=== PATIENT | female | born 1985 | race Caucasian/White ===

== ENCOUNTER 2018-02-01 17:10 | Inpatient (IN) | payer OTHER, SELFPAY ==
[2018-02-01 14:47] VITALS: BMI 27.1
[2018-02-01] MEDS: Lactated Ringers 1,000 ML 50 ML IV ×2 (17:25→21:41)
[2018-02-01 17:42] LABS: Hemoglobin 13.4 g/dl (12.0-15.0); Mean Corp Hgb Conc 34.4 g/gl (32-36); Mean Corpuscular Hgb 30.3 pg (27.0-32.0); Mean Corpuscular Volume 88.2 fL (81-99); Mean Platelet Vol. 11.7 fl (6.2-12.0); Platelet Count 179 K/mm3 (150-450); RBC Distribution Width CV 14.5 % (11.6-14.6); RBC Distribution Width SD 46.2 fl (35.1-43.9); Red Blood Count 4.42 M/mm3 (4.2-5.4)
[2018-02-01 18:00] LABS: Scan Indicated on CBC? Y/N NO
--- NOTE | 2018-02-01 18:18 | PCM.HP.OB ---
- Problem List (1) History of anxiety Status: Acute (2) Anemia during Status: Acute (3) Active labor at term Status: Acute History Date of Admission: 02/01/18 Final CLYDE: 02/07/18 Final CLYDE Source: LMP Gestational age: 39 Weeks and 1 Days History of this : This is a 32 year-old, G [1], P [0], at 39 weeks gestational age by LMP Presented to L&D around 1pm today. Contractions began around 0600 this am and have increased in frequency and intensity. Around 1pm contractions began every 5 minutes. Upon arrival 4cm/90%/-2. at bedside. Allergies No Known Allergies Allergy (Verified 02/01/18 14:48) Home Medications: Home Medications Ferrous Sulfate [Iron] 325 mg PO DAILY 02/01/18 Vits [Prenatabs FA] 1 tablet PO DAILY 02/01/18 Smoking Status: Never smoker Alcohol: None Number of Fetus(es): 1 Heart Tracin, moderate variability, accels, no decels, Category 1 TOCO Analysis: TOCO every 2-3 minutes, moderate to palpation, lasting 60 seconds. History Past Pregnancies: Past Pregnancies Delivery Date Name GA/Weeks Outcome Route Weight Infant Gender Labor Length Anesthesia Delivery Location Provider FOB Labs: GBS negative O positive RPR negative Rubella immune HBsAG negative HIV negative Placenta anterior fundal Review of Systems Constitutional: Denies: Chills, Fever, Weight Change HEENT: Denies: Head Aches, Sinus Congestion, Sinus Drainage Cardiovascular: Denies: Chest Pain, Palpitations Respiratory: Denies: Cough, Shortness of breath at rest, Sputum production Gastrointestinal: Reports: Abdominal Pain. Denies: Nausea, Vomiting Genitourinary: Denies: Dysuria Musculoskeletal: Denies: Joint Pain, Joint Tenderness Skin: Denies: Rash, Wounds Neurological: Denies: Numbness, Tingling, Focal weakness Psychiatric: Denies: Anxiety, Depression, Homicidal Ideations, Suicidal Ideations Physical Exam General: Alert, Oriented x3, No apparent distress HEENT: Atraumatic, Normocephalic Cardiovascular: Regular rate, Regular Rhythm, Normal S2, No murmurs Lungs: Clear to auscultation, No rhonchi, No wheeze Abdomen: Gravid Extremities:: No edema Neurological: Deep Tendon Reflexes 2+/4 and Symmetrical. Negative for: Clonus WATCH PARTS INSPECTOR: Normal external genitalia Estimated gestational size: Appropriate for gestational size Presentation: Cephalic Cervix Dilation (cm): 5 Station: -2 Effacement (%): 90 Assessment/Plan All Active Problems History of anxiety (Acute) Anemia during (Acute) Active labor at term (Acute) This is a 32 year-old, G [1], P [0], at 39 weeks gestational age. A:Active Labor Category 1 FHT P: 1) Admit to L&D. IV saline lock. Send labs 2) INtermittent monitoring 3) Planning natural childbirth, positional changes, and shower. 4) notified of patient status Francheska Vazquez APRN, CNM
[2018-02-01] MEDS: 0.9% Saline Lock 10 ML Syringe IV (18:56)
[2018-02-01] MEDS: Nalbuphine 10 MG/ML Ampul IV (18:56)
[2018-02-01] MEDS: proMETHazine 25 MG/ML Syringe IV (19:08)
--- NOTE | 2018-02-01 21:59 | PCM.PN.OB ---
Patient Problems: Active and Suspected Problems History of anxiety (Acute) Anemia during (Acute) Active labor at term (Acute) Subjective: Resting in bed, breathing through contractions. at bedside. Objective: FHT 135, minimal variability, no accels, no decels, Category 2 TOCO: every 2 minutes, strong, lasting 60 seconds. Cervix 8-9cm/90%/0 AROM for clear fluid, patient tolerated well. - Physical Exam Weight: 172 lb 13.478 oz Body Mass Index (BMI) 27.1 Laboratory Tests Past 24 Hrs 02/01/18 02/01/18 17:25 17:25 WBC 12.0 H RBC 4.42 Hgb 13.4 Hct 39.0 MCV 88.2 MCH 30.3 MCHC 34.4 RDW 14.5 RDW Differential 46.2 H Plt Count 179 MPV 11.7 Blood Type O POSITIVE Antibody Screen NEGATIVE Medical Necessity - Tobacco Use Smoking Status: Never smoker Assessment/Plan All Active Problems History of anxiety (Acute) Anemia during (Acute) Active labor at term (Acute) A:Active Labor, progressing Category 2 FHT P: 1) Continue positional changes and expectant management.
[2018-02-02] MEDS: Oxytocin 30 units/NS 500 ml 30 UNITS/500 ML IV.SOLN 334 UNITS IV (00:30)
--- NOTE | 2018-02-02 00:58 | PCM.OB.VAG ---
- Problem List (1) History of anxiety Status: Acute (2) Anemia during Status: Acute (3) Active labor at term Status: Acute (4) Vaginal delivery Status: Acute (5) Second degree perineal laceration Status: Acute Vaginal Delivery Maternal Presentation: Active Labor Amniotic Membrane Rupture Type: Artificial Amniotic Fluid Description: Clear Final CLYDE: 02/07/18 Gestational age: 39 Weeks and 2 Days Date of Procedure: 02/02/18 Pre-Operative Diagnosis: Active Labor Post-Operative Diagnosis: Surgery/ Procedure Performed: Spontaneous Vaginal Delivery Type of Anesthesia: None Description of Procedure: Progressed to complete with urge to push. Pushing efforts with progression of descent. station +3 and FHR down to 54, prolonged decel. Regional Branch Manager called to room for delivery. Positional changes left side, right side, and hands and knees. on L&D unit and called to room for vacuum extraction. FHR recovered and resumed pushing efforts. of viable male over 1st degree perineal laceration. APGARS 8,9 weight pending. Infant head delivered with CAN x1 loose, delivered through, shoulders forthcoming. Placed on maternal abdomen, poor tone, stimulation, mouth and nares suctioned, cord clamped and cut. with cry, good color, tone, and heart rate, left on maternal abdomen skin to skin. Pitocin IV started for active 3rd stage management. Placenta delivered via khadar, intact, 3 vessel cord. Perineum inspected and revealed 2nd degree perineal laceration, repaired with 1% lidocaine and 3.0vicryl. Well approximated and hemostasis achieved. Fundus firm, EBL 300ml. Planning to breastfeed, mom and baby stable, family bonding well. notified of delivery. Presentation: Vertex Placental Delivery Description: Spontaneous Placenta Disposition: [facility] Cord Vessel Description: 3 Vessels Cord Entanglement: Around neck x 1, loose Estimated Blood Loss: 300 ml A gender: Male (1 minute): 8 (5 minute): 9 Episiotomy Description: None Laceration: Perineal Extension/lac, 1st degree Medications given after delivery: IV Pitocin Complications: None
[2018-02-02 02:29] VITALS: BP 104/65; PULSE 83; RESP 16; TEMP 36.6
[2018-02-02 08:50] VITALS: BP 119/67; PULSE 76; RESP 18; TEMP 37
[2018-02-02 11:18] VITALS: BP 129/73; PULSE 86; RESP 18; TEMP 36.7
[2018-02-02 16:00] VITALS: BP 115/60; PULSE 85; RESP 18; TEMP 36.8
--- NOTE | 2018-02-02 16:55 | PCM.PN.OB ---
Patient Problems: Active and Suspected Problems History of anxiety (Acute) Anemia during (Acute) Active labor at term (Acute) Vaginal delivery (Acute) Second degree perineal laceration (Acute) Subjective: Patient sitting in bed with at this time. Denies any issues are this time. Reports that baby is latching better each time and that she does not have any discomfort. Reports no issues with ambulation or urination. Reports that vaginal bleeding is decreasing. Objective: Nipples slightly erythemic, no cracks or blisters noted Abdomen NT x 4 quadrants, FF midline 3FB below umbilicus +2/4 reflexes in LE, no edema noted, negative calf tenderness to palpation Scant rubra lochia, perineum well-approximated - Physical Exam General: Alert, Oriented x3, Cooperative HEENT: Normocephalic Neck: Negative Carotid Bruits Lungs: Normal air movement Cardiovascular: Regular rate, Regular Rhythm Abdomen: Soft, Non Tender Extremities: No edema, Capillary Refill Less than 3 Seconds Skin: No rashes Neurological: Cranial nerves II-XII grossly intact, Deep Tendon Reflexes 2+/4 and Symmetrical Psych/Mental Status: Normal Affect, Appropriate, Alert and oriented to time, place, person, mood and affect Vital Signs Temp Pulse Resp BP 98.0 F 86 18 129/73 H 02/02/18 11:18 02/02/18 11:18 02/02/18 11:18 02/02/18 11:18 Oxygen Delivery Method Room Air Weight: 172 lb 13.478 oz Body Mass Index (BMI) 27.1 Intake and Output for Last 24 Hours 01/31/18 02/01/18 02/02/18 23:59 23:59 23:59 Intake Total 1500 / 1500 Output Total 500 / 500 800 / 800 Balance 1000 / 1000 -800 / -800 Laboratory Tests Past 24 Hrs 02/01/18 02/01/18 17:25 17:25 WBC 12.0 H RBC 4.42 Hgb 13.4 Hct 39.0 MCV 88.2 MCH 30.3 MCHC 34.4 RDW 14.5 RDW Differential 46.2 H Plt Count 179 MPV 11.7 Blood Type O POSITIVE Antibody Screen NEGATIVE Medical Necessity - Tobacco Use Smoking Status: Never smoker Assessment/Plan All Active Problems History of anxiety (Acute) Anemia during (Acute) Active labor at term (Acute) Vaginal delivery (Acute) Second degree perineal laceration (Acute) 32 y/p now, PPD #1, Normal Course 1) Continue PP management 2) Continue 3) Anticipate discharge to home tomorrow Jazmine MARCOS
--- NOTE | 2018-02-02 17:37 | DCINST_ITS ---
Discharge Diet: No Restrictions Discharge Activity: Return to Normal Activity, May not drive while taking narcotic pain medications., May Shower May resume sexual activity in: 4-6 weeks Additional Activity Instructions:: Nothing in the vagina for 4-6 weeks. You may return to work/school in 6 weeks. Call your doctor if your incision/area has: Continuous Slow Oozing, Sudden Increased Bleeding, Increased Pain/ Swelling, Increased Redness, Foul Smelling Discharge Call your doctor if you observe: Fever of 101 or Higher, Inability to urinate, Inability to have a bowel movement, Using more than one pad per hour Additional Instructions: If you experience any of the following, contact your healthcare provider. * Bleeding that soaks a pad every hour for 2 hours * Fever 100.4 or higher * Unrelieved incision or abdominal pain * Swelling, redness, discharge or bleeding from your incision or episiotomy site * Your incision begins to separate * Problems urinating (including inability to urinate or burning while urinating). * Visual changes * Severe headache * Flu-like symptoms * Pain or redness in one of both of your breasts * Pain, warmth, tenderness or swelling in your legs, especially the calf area * Frequent nausea and vomiting * Symptoms of depression or anxiety If you experience any of the following, call 911 or go to the nearest Emergency Room. * Chest pain * Problems breathing * Seizure activity * Partial or complete paralysis of a body part, slurred speech, weakness or drooping of the face, or a sudden inability to walk or hold your balance Allergies/Adverse Reactions: Allergies No Known Allergies Allergy (Verified 02/01/18 14:48) Medications to take at Discharge Ferrous Sulfate [Iron] 325 mg PO DAILY 02/01/18 Vits [Prenatabs FA] 1 tablet PO DAILY 02/01/18 Please Follow Up With: Francheska Vazquez CNM When: Call to make an appointment with your provider in 2 weeks and 6 weeks. If you had elevated Blood Pressure or 4th degree laceration you will need to be seen in 2 weeks. Primary Care Physician: Darryl Chairez MD [Primary Care Provider] - Test Results: Test results from this visit will be discussed in further detail at your follow- up appointment, if applicable. Proposed Discharge Date: 02/03/18
[2018-02-02 20:42] VITALS: BP 114/62; PULSE 87; RESP 16; TEMP 36.6; O2SAT 96
[2018-02-03 01:25] VITALS: BP 115/59; PULSE 82; RESP 16; TEMP 36.3; O2SAT 95
[2018-02-03 07:59] VITALS: BP 109/64; PULSE 68; RESP 16; TEMP 36.6
--- NOTE | 2018-02-03 09:04 | PCM.PN.OB ---
Patient Problems: Active and Suspected Problems History of anxiety (Acute) Anemia during (Acute) Active labor at term (Acute) Vaginal delivery (Acute) Second degree perineal laceration (Acute) Subjective: Doing well per patient and nursing staff. Ambulating and taking PO without difficulty. Voiding and passing flatus. without difficulty. Denies any headache, visual changes, chest pain, SOB,increased vaginal bleeding, increased pain or leg pain. Planning D/C home today. - Physical Exam General: Alert, Oriented x3, Cooperative HEENT: Atraumatic, Normocephalic Cardiovascular: Regular rate, Regular Rhythm, No murmurs Abdomen: Non Tender, - - Fundus firm 2 below U Extremities: No edema Psych/Mental Status: Normal Affect, Appropriate Vital Signs Temp Pulse Resp BP Pulse Ox 97.8 F 68 16 109/64 95 02/03/18 07:59 02/03/18 07:59 02/03/18 07:59 02/03/18 07:59 02/03/18 01:25 Oxygen Delivery Method Room Air Weight: 172 lb 13.478 oz Body Mass Index (BMI) 27.1 Intake and Output for Last 24 Hours 02/01/18 02/02/18 02/03/18 23:59 23:59 23:59 Intake Total 1500 / 1500 Output Total 500 / 500 800 / 800 Balance 1000 / 1000 -800 / -800 Medical Necessity - Tobacco Use Smoking Status: Never smoker Assessment/Plan All Active Problems History of anxiety (Acute) Anemia during (Acute) Active labor at term (Acute) Vaginal delivery (Acute) Second degree perineal laceration (Acute) A:PPD #2 P: 1) D/C instructions given. D/C home today 2) Follow up in 6 weeks for visit. 3) Declines LARC
[2018-02-03 14:51] VITALS: BP 111/65; PULSE 71; RESP 16; TEMP 36.6
== END 2018-02-03 16:30 | disposition home or self-care (01) | DRG 807 ==
LOC: WPOUT 17:11
PROVIDERS: Advanced Practice Midwife; Admitting Provider Obstetrics & Gynecology; Family Provider Family Medicine; PCP Family Medicine; Referring Provider Obstetrics & Gynecology; Visit Provider Obstetrics & Gynecology
DX: O69.81X0 Labor and delivery complicated by cord around neck, without compression, not applicable or unspecified (principal); O76 Abnormality in fetal heart rate and rhythm complicating labor and delivery; O70.1 Second degree perineal laceration during delivery; Z3A.39 39 weeks gestation of pregnancy; Z37.0 Single live birth
CPT/HCPCS: 59025; 59050; 85027; 86850; 86900; 99218; J7120; A4216; G0378

== ENCOUNTER 2018-02-07 13:30 | Outpatient (CLI) | payer OTHER, SELFPAY | END 2018-02-07 14:20 | disposition home or self-care (01) | LOC: WPOUT 14:01 → WP 14:04 | PROVIDERS: Family Provider Family Medicine; PCP Family Medicine; Referring Provider Obstetrics & Gynecology; Visit Provider Obstetrics & Gynecology | DX: Z39.1 Encounter for care and examination of lactating mother (principal) | CPT/HCPCS: 96152 ==

== ENCOUNTER 2020-02-02 02:30 | Inpatient (IN) | payer OTHER, SELFPAY ==
[2020-02-02] VITALS (18 sets, daily range): BP systolic 109–138; BP diastolic 58–82; PULSE 71–91; RESP 16; TEMP 36.1–36.8; O2SAT 96–97; BMI 29.4
[2020-02-02] MEDS: Lactated Ringers 1,000 ML 200 ML IV (03:15)
[2020-02-02 03:35] LABS: Absolute Lymphocyte Count 2.25 X10^3/uL (0.83-4.51); Absolute Neutrophil Count 6.9 X10^3/uL (2.0-7.7); Basophil# 0.06 X10^3/uL; Basophil% 0.6 % (0-1); Eosinophil# 0.08 X10^3/uL; Eosinophils% 0.8 % (0-5); Hemoglobin 11.4 g/dL (12.0-15.0); Lymphocyte # 2.25 X10^3/ul (4.0); Lymphocyte % 21.4 % (19-41); Mean Corp Hgb Conc 32.6 g/dL (32-36); Mean Corpuscular Hgb 28.5 pg (27.0-32.0); Mean Corpuscular Volume 87.5 fL (81-99); Monocyte# 1.03 X10^3/uL; Monocyte% 9.8 % (0-10); NRBC Flagged by Analyzer 0 % (0-5); Neutrophil # 6.91 X10^3/uL (2.7-7.7); Neutrophil % 65.8 % (47-70); Platelet Count 195 K/mm3 (150-450); RBC Distribution Width CV 14.3 % (11.6-14.6); RBC Distribution Width SD 45.8 fl (35.1-43.9); White Blood Count 10.5 K/mm3 (4.4-11.0)
--- NOTE | 2020-02-02 04:54 | HP.PCM_ITS ---
History Date of Admission: 02/01/18 Final CLYDE: 02/08/20 Final CLYDE Source: LMP Gestational age: 39 Weeks and 1 Days History of this : This is a 34 year-old, G [2], P [1001], at 39 weeks gestational age. Presented to unit with contractions that started at midnight and increased in frequency and intensity. Upon arrival found to be 5cm. No leakage of fluid or vaginal bleeding. uncomplicated to date. Allergies No Known Allergies Allergy (Verified 02/02/20 03:54) Home Medications: Home Medications Vits [Prenatabs FA ] 1 tablet PO DAILY 02/01/18 Ferrous Sulfate [Iron] 1 tab PO QODAY 02/02/20 Sertraline HCl [Zoloft] 1 tab PO DAILY 02/02/20 Smoking Status: Never smoker Alcohol: None Number of Fetus(es): 1 NST - FHR Rate Baby A Baseline: 145 Variability:: Moderate Accelerations:: 15 x 15 Decelerations:: None FHR Category:: Category I Uterine Activity:: q5min, strong History Past Pregnancies: Past Pregnancies Delivery Date Name GA/ Weeks Outcome Route Wt Infant Sex Labor Length Anesthesia Delivery Location Provider FOB Labs: Mom's Labs & Results 02/02/20 02/02/20 03:15 03:15 WBC 10.5 RBC 4.00 L Hgb 11.4 L Hct 35.0 L MCV 87.5 MCH 28.5 MCHC 32.6 RDW Std Deviation 45.8 H RDW Coeff of Pedro 14.3 Plt Count 195 MPV 11.0 Immature Gran % (Auto) 1.600 H Neut % (Auto) 65.8 Lymph % (Auto) 21.4 [place] % (Auto) 9.8 Eos % (Auto) 0.8 Baso % (Auto) 0.6 Absolute Neuts (auto) 6.9 Absolute Lymphs (auto) 2.25 Nucleated RBC % 0 Blood Type O POSITIVE Antibody Screen NEGATIVE Course Did the patient receive Yes care? Labs Blood Type: O RH: POSITIVE RPR/VDRL/Syphilis Nonreactive Rubella status Immune HbSAg Negative Date Done: 07/06/19 Chlamydia Negative Gonorrhea Negative HIV/AIDS Non-Reactive Group B Strep: Negative Current Obstetrical History Gestational Diabetes No Incompetent Cervix No Infertility No IUGR No Macrosomia No Hypertension/Pre-eclampsia No Placenta Previa/Abruption No PTL/PROM No Uterine anomaly No Oligohydramnios No Polyhydramnios No Multiple gestation No Past Medical History Asthma No Diabetes No Hypertension No Heart disease No Mitral valve prolapse No Neurologic/Seizure disorder/ No Migraines Kidney disease No Liver disease No Varicosities No Clotting disorders/Hx of DVT No Thyroid Dysfunction No Other medical diseases No Psychiatric disorders No Major trauma No Abnormal PAP smear No Sleep apnea No Mammogram in the last 2 years No Social History Marital Status: Alleged father Festus Palencia Hx Smoking No Smoking Status Never smoker Expected Delivery Method: Spontaneous Vaginal Review of Systems Constitutional: Denies: Chills, Fever, Weight Change HEENT: Denies: Head Aches, Sinus Congestion, Sinus Drainage Cardiovascular: Denies: Chest Pain, Palpitations Respiratory: Denies: Cough, Shortness of breath at rest, Sputum production Gastrointestinal: Denies: Abdominal Pain, Nausea, Vomiting Genitourinary: Denies: Dysuria Musculoskeletal: Denies: Joint Pain, Joint Tenderness Skin: Denies: Rash, Wounds Neurological: Denies: Numbness, Tingling, Focal weakness Psychiatric: Denies: Anxiety, Depression, Homicidal Ideations, Suicidal Ideations Hematologic/ Lymphatic: Denies: Easy Bruising, Easy Bleeding Physical Exam Vitals: Vital Signs Pulse BP Pulse Ox 86 124/62 H 97 02/02/20 04:52 02/02/20 04:52 02/02/20 02:28 General: Alert, Oriented x3, Cooperative HEENT: Atraumatic, Normocephalic Extremities:: No edema SANITIZER: Normal external genitalia Estimated gestational size: Appropriate for gestational size Presentation: Cephalic Cervix Dilation (cm): 9 - AROM for moderate amount of meconium stained fluid. Station: -1 Effacement (%): 90 Assessment/Plan All Active Problems History of anxiety (Acute) Anemia during (Acute) Active labor at term (Acute) Vaginal delivery (Acute) Second degree perineal laceration (Acute) This is a 34 year-old, G [2], P [1001], at 39 weeks gestational age. A: Active Labor at term Category 1 FHT Meconium stained fluid P: 1) Admit to labor and delivery 2) Routine labs, GBS negative. COVID antigen test to be performed 3) Planning unmedicated 4) Meconium stained fluid, continuous EFM 5) notified of patient admission and status. Collaborative physician.
--- NOTE | 2020-02-02 05:05 | OP.PCM_ITS ---
Vaginal Delivery Maternal Presentation: Active Labor Amniotic Membrane Rupture Type: Artificial Amniotic Fluid Description: Lightly stained meconium Final CLYDE: 02/08/20 Gestational age: 39 Weeks and 1 Days Surgery/ Procedure Performed: Spontaneous Vaginal Delivery Type of Anesthesia: Local with 1% lidocaine Description of Procedure: Progressed to complete with strong urge to push. Rodent Exterminator and respiratory called to bedside due to meconium stained fluid. of viable female infant over 2nd degree perineal laceration. APGARS 7,8,9. Infant head delivered with b eric forthcoming. Good tone and color but poor respiratory effort. Cord clamped and cut and handed to nursery staff. Unable to start IV pitocin due to infiltrated IV. IM pitocin given for active 3rd stage management. Placenta delivered with maternal effort, 3 vessel cord via khadar. Perineum inspected and revealed 2nd degree perineal laceration. Repair with 1% lidocaine and 3.0 vicryl rapide. Well approximated and hemostasis achieved. Fundus firm, 300ml EBL. Mom and baby stable. Planning to breastfeed. Family bonding well. notified of delivery. Presentation: Vertex Placental Delivery Description: Spontaneous Placenta Disposition: [facility] Cord Vessel Description: 3 Vessels Cord Entanglement: None Estimated Blood Loss: 300 ml Infant A gender: Female (1 minute): 7 - 10 minute =9 (5 minute): 8 Episiotomy Description: None Laceration: Perineal Extension/lac, 2nd degree Medications given after delivery: - - IM Pitocin. IV infiltrated Complications: None
[2020-02-02] MEDS: Oxytocin 10 UNITS/ML Vial IM (05:29)
--- NOTE | 2020-02-02 13:50 | CASEMGMT ---
Social Work Brief Assessment Labor and Delivery Unit Refer documentation below for further details. Date of Referral/Notification: 02/02/2020 Time of Referral: 06:14 Reason for Referral: MOB with history of Post Depression Date of Intervention: 02/02/2020 Time of Intervention: 13:50 Informant: Medical record and mother of baby (MOB) Assessment: Met with MOB and FOB in room. Introduced role and reason for referral. MOB openly discussed mental health history. MOB reports unsure if she really had post depression. MOB reports 2 weeks after son, Caleb (age 2) was born her father . MOB states son was also a very colicky baby. MOB denies any current issues with depression or anxiety. MOB reports is breast feeding baby girl, Wendi and it is going well. MOB and FOB deny any issues or needs. MOB reports good support from family and friends. Collaboration with nursing who reports no concerns. Plan: Home with resources provided No further needs requested or indicated. Debbie Jiang, SOLE TRIMMER, STATION OPERATOR
[2020-02-03 00:50] VITALS: BP 106/67; PULSE 69; RESP 16; TEMP 36.3
--- NOTE | 2020-02-03 03:10 | NURSING ---
this RN gave report to aorr RN. that RN to assume care of pt at this time.
--- NOTE | 2020-02-03 03:16 | NURSING ---
This RN assuming care of patient at this time. Received report from Micheline CORDON.
[2020-02-03 04:21] VITALS: BP 100/66; PULSE 73; RESP 16; TEMP 36.4
[2020-02-03 04:33] LABS: Hematocrit 33.5 % (37-47); Mean Corp Hgb Conc 32.8 g/dL (32-36); Mean Corpuscular Hgb 28.9 pg (27.0-32.0); Mean Corpuscular Volume 88.2 fL (81-99); Mean Platelet Vol. 10.5 fl (6.2-12.0); Platelet Count 181 K/mm3 (150-450); RBC Distribution Width CV 14.6 % (11.6-14.6); RBC Distribution Width SD 46.7 fl (35.1-43.9); White Blood Count 10.5 K/mm3 (4.4-11.0)
[2020-02-03 07:25] VITALS: BP 116/71; PULSE 61; RESP 16; TEMP 36.6; O2SAT 99
--- NOTE | 2020-02-03 09:36 | PCM.PN.OB ---
Subjective: Doing well per patient and nursing staff. Ambulating and taking PO without difficulty. Voiding and passing flatus. Pain controlled. without difficulty. Planning D/C home today. - Physical Exam Vitals/I&O's: Vital Signs Temp Pulse Resp BP Pulse Ox 97.8 F 61 16 116/71 99 02/03/20 07:25 02/03/20 07:25 02/03/20 07:25 02/03/20 07:25 02/03/20 07:25 Oxygen Delivery Method Room Air Weight: 188 lb Body Mass Index (BMI) 29.4 Intake and Output for Last 24 Hours 02/01/20 02/02/20 02/03/20 23:59 23:59 23:59 Intake Total 233.33 / 233.33 Output Total 150 / 150 Balance 83.33 / 83.33 General: Alert, Oriented x3, Cooperative HEENT: Atraumatic, Normocephalic Neck: Trachea Midline Lungs: Clear to auscultation, Normal air movement, No rhonchi, No wheeze Cardiovascular: Regular rate, Regular Rhythm, No murmurs Abdomen: Bowel Sounds Present, Soft - fundus firm 2 below U Extremities: No edema Psych/Mental Status: Normal Affect, Appropriate Microbiology Past 72 Hours 02/02/20 05:20 Mucosa - Nose - Final Laboratory Results 02/03/20 04:25: WBC 10.5, RBC 3.80 L, Hgb 11.0 L, Hct 33.5 L, MCV 88.2, MCH 28.9, MCHC 32.8, RDW Std Deviation 46.7 H, RDW Coeff of Pedro 14.6, Plt Count 181, MPV 10.5 Current Medications Acetaminophen (Acetaminophen 500 Mg Tablet) 1,000 mg PO Q8H PRN PRN PRN Reason: Pain Score 1-3 Bisacodyl (Bisacodyl 10 Mg Suppository) 10 mg RECTAL UD PRN PRN Reason: If no BM Dibucaine (Dibucaine 30 Gm Tube) 1 applic TOPICAL TID PRN PRN; Protocol PRN Reason: Discomfort Hydrocortisone (Hydrocortisone 2.5% Crm) 1 applic TOPICAL TID PRN PRN; Protocol PRN Reason: Discomfort Ibuprofen (Ibuprofen 600 Mg Tablet) 600 mg PO Q6H PRN PRN PRN Reason: Pain Score 1-3 Methylergonovine Maleate (Methylergonovine 0.2 Mg/Ml Ampul) 0.2 mg IM X1 PRN PRN Reason: Excess bleeding/uterine atony Ondansetron HCl (Ondansetron 4 Mg/2 Ml Vial) 4 mg IV Q4H PRN PRN PRN Reason: Nausea Oxytocin (Oxytocin 10 Units/Ml Vial) 10 units IM X1 JAYDON Last Admin: 02/02/20 05:29 Dose: 10 units Documented by: Senna/Docusate Sodium (Senna/Docusate Sodium 1 Tablet) 1 - 2 tablet PO DAILY PRN PRN PRN Reason: Constipation Simethicone (Simethicone 80 Mg Tablet) 80 mg PO PCHS PRN PRN Reason: Indigestion/Stomach pain Sodium Chloride (0.9% Saline Lock 10 Ml Syringe) 5 - 15 ml IV UD PRN PRN Reason: SALINE FLUSH Medical Necessity - Tobacco Use Smoking Status: Never smoker Assessment/Plan All Active Problems History of anxiety (Acute) Anemia during (Acute) Active labor at term (Acute) Vaginal delivery (Acute) Second degree perineal laceration (Acute) A:PPD #1 P: 1) Routine care and education 2) D/C home 3) follow up in 2 weeks and 6 weeks
--- NOTE | 2020-02-03 09:39 | DCINST_ITS ---
Discharge Diet: No Restrictions Discharge Activity: Return to Normal Activity, May not drive while taking narcotic pain medications., May Shower, May Take a Tub Bath May resume sexual activity in: 4-6 weeks Weight Bearing Status: Full weight bearing Additional Activity Instructions:: Nothing in the vagina for 4-6 weeks. You may return to work/school in 6 weeks. Call your doctor if your incision/area has: Continuous Slow Oozing, Sudden Increased Bleeding, Increased Pain/ Swelling, Increased Redness, Foul Smelling Discharge Call your doctor if you observe: Fever of 101 or Higher, Inability to urinate, Inability to have a bowel movement, Using more than one pad per hour, Shortness of breath, Dizziness, Fainting spells, Chest pain, Increased palpitations (irregular heartbeat), Calf discomfort, Uncontrolled pain Additional Instructions: If you experience any of the following, contact your healthcare provider. * Bleeding that soaks a pad every hour for 2 hours * Fever 100.4 or higher * Unrelieved incision or abdominal pain * Swelling, redness, discharge or bleeding from your incision or episiotomy site * Your incision begins to separate * Problems urinating (including inability to urinate or burning while urinating). * Visual changes * Severe headache * Flu-like symptoms * Pain or redness in one of both of your breasts * Pain, warmth, tenderness or swelling in your legs, especially the calf area * Frequent nausea and vomiting * Symptoms of depression or anxiety If you experience any of the following, call 911 or go to the nearest Emergency Room. * Chest pain * Problems breathing * Seizure activity * Partial or complete paralysis of a body part, slurred speech, weakness or drooping of the face, or a sudden inability to walk or hold your balance Allergies/Adverse Reactions: Allergies No Known Allergies Allergy (Verified 02/02/20 03:54) Medications to take at Discharge Vits [Prenatabs FA ] 1 tablet PO DAILY 02/01/18 Sertraline HCl [Zoloft] 1 tab PO DAILY 02/02/20 Ibuprofen [Motrin] 600 mg PO Q6H PRN PRN tablet 02/03/20 Please Follow Up With: Francheska Vazquez CNM When: Call to make an appointment with your doctor in 2 weeks and 6 weeks. If you had elevated Blood Pressure or 4th degree laceration you will need to be seen in 2 weeks. Primary Care Physician: Darryl Chairez MD [Primary Care Provider] - Test Results: Test results from this visit will be discussed in further detail at your follow- up appointment, if applicable.
== END 2020-02-03 10:50 | disposition home or self-care (01) | DRG 807 ==
LOC: WPOUT 02:56 → WP 02:56
PROVIDERS: Admitting Provider Advanced Practice Midwife; PCP Family Medicine; Referring Provider Advanced Practice Midwife; Visit Provider Advanced Practice Midwife
DX: O77.0 Labor and delivery complicated by meconium in amniotic fluid (principal); Z37.0 Single live birth; O70.1 Second degree perineal laceration during delivery; O99.02 Anemia complicating childbirth; D64.9 Anemia, unspecified; O99.344 Other mental disorders complicating childbirth; F41.9 Anxiety disorder, unspecified; Z3A.39 39 weeks gestation of pregnancy
CPT/HCPCS: 59025; 59050; 85025; 85027; 86850; 86900; 86901; 87426; 99218; J7120; G0378

== ENCOUNTER 2021-11-18 12:53 | Emergency (ER) | payer OTHER, SELFPAY ==
--- NOTE | 2021-11-18 12:56 | SUR.HOLD ---
PT THRASHING AROUND IN TRIAGE BECAUSE I DONT LIKE DOCTORS, I NEED TO LAY DOWN, JUST LET ME LAY ON THE FLOOR, I DONT LIKE DOCTORS, TAKE THIS OFF ME, LET ME LAY ACROSS THESE CHAIRS.
[2021-11-18 12:57] VITALS: BP 111/63; PULSE 83; RESP 14; TEMP 36.8; O2SAT 100; BMI 25.8
[2021-11-18 13:06] VITALS: O2SAT 97
--- NOTE | 2021-11-18 14:38 | EX.ED.VIS.UR ---
HPI HPI - URI History of Present Illness Chief Complaint: Shortness of Breath Informant: patient Narrative Narrative: Patient is a 36-year-old female is 15 weeks presenting with concerns of COVID-19 and shortness of breath. Patient has COVID-19 infection and started having symptoms 4 days ago. She is having nasal congestion, face pain, headache, sore throat, dry cough with some episodes of posttussive vomiting, anxiety and shortness of breath. She states she feels short of breath because she cannot breathe through her nose. She has had some nausea and vomiting with her prior to this. Patient spoke with her bridge worker apprentice today who recommend she come to the ER to be evaluated further. Patient denies any abnormal vaginal bleeding or change in vaginal discharge. She denies any urinary symptoms. She is only taken Tylenol for her symptoms. She notes that she does feel very anxious with her symptoms and is wondering if that is exacerbating her shortness of breath. ROS ROS ED Constitutional Constitutional ED: Reports chills and fever(s) Eyes Eyes: Denies blurry vision or change in vision ENT ENT ED: Reports sore throat and other Details: nasal congestion Cardiovascular Cardiovascular: Denies chest pain or palpitations Respiratory/Chest Respiratory/Chest: Reports cough and dyspnea Gastrointestinal Gastrointestinal: Reports diarrhea, nausea and vomiting; Denies abdominal pain Genitourinary Genitourinary ED: Denies dysuria or hematuria Musculoskeletal Musculoskeletal: Reports myalgias; Denies arthralgias, back pain or neck pain Integumentary Denies rash Neurologic Neurologic: Reports headache(s); Denies paresthesias or weakness Psychiatric Psychiatric: Reports anxiety; Denies depression PFSH PFSH Home Medications vits,calcium no.78-iron fumarate-folic acid 29 mg-1 mg tablet (Prenatabs FA) 1 tab PO DAILY 02/01/18 [History Last Taken 02/01/20 08:00] sertraline 100 mg tablet 1 tab PO DAILY Check with primary doctor 02/02/20 [History Last Taken 02/01/20 08:00] ibuprofen 600 mg tablet 600 mg PO Q6H PRN PRN Pain Score 1-3 02/03/20 [Rx Last Taken Unknown] Allergy/AdvReac Type Severity Reaction Status Date / Time No Known Allergies Allergy Verified 02/02/20 03:54 Social History Smoking Status: Never smoker EXAM Physical Exam Const Vital Signs: 11/18/21 12:57 11/18/21 13:06 11/18/21 14:48 Temperature 98.2 F Temperature Source Temporal Pulse Rate 83 68 Respiratory Rate 14 18 Respiratory Effort Short of Breath Respiratory Pattern Normal Blood Pressure 111/63 Blood Pressure Mean 79 Pulse Ox 100 97 Oxygen Delivery Method Room Air Room Air Positive well nourished and well developed General Appearance ED: well developed and NAD HEENT Reports moist mucous membranes HEENT Narrative: Normal tympanic membranes bilaterally normocephalic and atraumatic Face and Sinus: Negative for sinus tenderness Throat: posterior oropharynx normal Eyes PERRL and EOMs intact bilaterally Neck no lymphadenopathy, supple and no meningeal signs Resp normal respiratory effort and clear to auscultation bilaterally Cardio no murmurs Rate: regular rate Rhythm: regular rhythm GI non-tender and non-distended GI Narrative: Palpable uterus below the level of the umbilicus, just above the pelvic bone Inspection: Negative for abdominal distention Palpation: soft Extremity normal to inspection and full ROM Neuro oriented x3 Motor Exam: general weakness Psych mental status grossly normal Mood & Affect: anxious Skin Lesions: no lesions Rashes: no rashes MDM MDM MDM Narrative Medical decision making narrative: Patient is evaluated for shortness of breath in the setting of a COVID-19 infection. Patient shortness of breath is associated with her nasal congestion and she feels short of breath when she cannot breathe through her nose. She is not have any hypoxia, tachycardia or tachypnea. She admits that she is very anxious about her diagnosis and the fact that she is . Patient is clear breath sounds. Her vital signs are normal and she is very well-appearing in the emergency room. I do not think a chest x-ray is indicated. Discussed checking lab work if the patient feel that she would benefit from that and IV fluids but patient states she is been keeping up with her hydration. Discussed with human geography faculty member for her [employer] medication she can take to help ease her symptoms. We went over that list and I gave it to her discharge report. Patient is comfortable with this. Patient is given return precautions. At this point I do not think patient requires emergent work-up but is encouraged to return to emergency room should her symptoms change/worsen or she has further concerns. Discharge Plan Triage Chief Complaint: Shortness of Breath ED Provider: Nori Mancuso Dx/Rx/DC Orders Clinical Impression: COVID-19 virus infection, Currently , Congested nose, Headache Instructions: Coronavirus Disease 2019 COVID-19 and Childbirth Prescriptions: No Action vit,[id number] [Prenatabs FA] 1 TABLET tablet 1 tab PO DAILY sertraline 100 MG tablet 1 tab PO DAILY ibuprofen 600 MG tablet 600 mg PO Q6H PRN PRN (Reason: Pain Score 1-3) 0RF Primary Care Provider: Darryl Chairez Referrals: Darryl Chairez MD [Primary Care Provider] - Activity Restrictions/Additional Instructions: You may take [id number] Tylenol, Zyrtec, Benadryl, Mucinex and Afrin for your symptoms. Do not take anything that has a decongestant and its besides the Afrin. Do not use the Afrin for more than 3 days in a row. Drink lots of fluids. Return to the emergency room if you develop fever over 100.4 for more than 7 days or change in your breathing/chest pain. Disposition Disposition: Home, Self Care Discharge Date/Time: 11/18/21 14:48
[2021-11-18 14:48] VITALS: PULSE 68; RESP 18; O2SAT 97
== END 2021-11-18 14:48 | disposition home or self-care (01) ==
PROVIDERS: Emergency Provider Emergency Medicine; PCP Family Medicine; Visit Provider Emergency Medicine
DX: O98.512 Other viral diseases complicating pregnancy, second trimester (principal); U07.1 COVID-19; Z3A.15 15 weeks gestation of pregnancy
CPT/HCPCS: 99282

== ENCOUNTER 2022-05-05 02:22 | Inpatient (IN) | payer OTHER, SELFPAY ==
[2022-05-05] VITALS (29 sets, daily range): BP systolic 100–132; BP diastolic 59–80; PULSE 71–108; RESP 14–16; TEMP 36.2–36.7; O2SAT 94–100; BMI 29.6
[2022-05-05] MEDS: Lactated Ringers 1,000 ML 200 ML IV (02:35)
[2022-05-05 02:47] LABS: Absolute Lymphocyte Count 2.34 X10^3/uL (0.83-4.51); Absolute Neutrophil Count 7.8 X10^3/uL (2.0-7.7); Basophil# 0.06 X10^3/uL; Basophil% 0.5 % (0-1); Eosinophil# 0.12 X10^3/uL; Eosinophils% 1.1 % (0-5); Hematocrit 35.9 % (37-47); Hemoglobin 11.8 g/dL (12.0-15.0); Lymphocyte # 2.34 X10^3/ul (0.83-4.51); Lymphocyte % 20.5 % (19-41); Mean Corp Hgb Conc 32.9 g/dL (32-36); Mean Corpuscular Hgb 28.9 pg (27.0-32.0); Mean Platelet Vol. 10.7 fl (6.2-12.0); Monocyte# 0.99 X10^3/uL; Monocyte% 8.7 % (0-10); NRBC Flagged by Analyzer 0 % (0-5); Neutrophil # 7.75 X10^3/uL (2.7-7.7); Platelet Count 220 K/mm3 (150-450); RBC Distribution Width SD 48.2 fl (35.1-43.9); Red Blood Count 4.08 M/mm3 (4.2-5.4); White Blood Count 11.4 K/mm3 (4.4-11.0)
[2022-05-05] MEDS: Ondansetron 4 MG/2 ML Vial IV (04:12)
[2022-05-05] MEDS: Oxytocin 10 UNITS/ML Vial IM (04:43)
[2022-05-05] MEDS: 0.9% Saline Lock 10 ML Syringe IV ×2 (04:50→05:30)
--- NOTE | 2022-05-05 05:03 | PCM.HP.OB ---
HPI - General General Date of Admission: 05/05/22 Date of Service: 05/05/22 HPI Narrative DIYA ELIZONDO, is a 36 F who presents with contractions. Maternal Data Information Final CLYDE: 05/10/22 Gestational age: 39&2 PFSH [facility] Medical History Anxiety Depression depression Home Medications vits,calcium no.78-iron fumarate-folic acid 29 mg-1 mg tablet (Prenatabs FA) 1 tab PO DAILY 02/01/18 [History Last Taken 05/04/22 08:00] sertraline 100 mg tablet 0.5 tab PO DAILY Check with primary doctor 02/02/20 [History Last Taken 05/04/22 08:00] ferrous sulfate 325 mg (65 mg iron) tablet (iron) 325 mg PO DAILY 05/05/22 [History Last Taken 05/04/22 08:00] Allergy/AdvReac Type Severity Reaction Status Date / Time No Known Allergies Allergy Verified 05/05/22 02:01 Surgical History History of surgery Social History Smoking Status: Never smoker History Elective abortions Hx Para 2 Spontaneous abortions Hx # Term Pregnancies Ectopic pregnancies Hx # Pregnancies Multiple births # of living children Vital Signs Vital Signs Vital Signs: 05/05/22 02:05 05/05/22 02:05 05/05/22 02:12 Temperature 97.8 F Temperature Source Temporal Pulse Rate Blood Pressure 113/72 BP Systolic 113 BP Diastolic 72 Pulse Ox 05/05/22 02:12 05/05/22 02:11 05/05/22 03:02 Temperature Temperature Source Pulse Rate 96 Blood Pressure 132/80 H BP Systolic 132 BP Diastolic 80 Pulse Ox 98 05/05/22 03:02 05/05/22 03:02 05/05/22 03:02 Temperature Temperature Source Pulse Rate 102 H 108 H Blood Pressure BP Systolic BP Diastolic Pulse Ox 100 05/05/22 03:05 05/05/22 03:05 05/05/22 04:17 Temperature 97.7 F L Temperature Source Oral Temporal Pulse Rate Blood Pressure BP Systolic BP Diastolic Pulse Ox 05/05/22 04:17 05/05/22 04:17 05/05/22 04:17 Temperature 98.0 F Temperature Source Pulse Rate 104 H Blood Pressure 118/73 BP Systolic 118 BP Diastolic 73 Pulse Ox 05/05/22 04:19 05/05/22 04:19 05/05/22 04:59 Temperature Temperature Source Pulse Rate 106 H Blood Pressure 117/75 BP Systolic 117 BP Diastolic 75 Pulse Ox 98 05/05/22 04:59 05/05/22 04:59 05/05/22 05:02 Temperature Temperature Source Temporal Pulse Rate 90 100 Blood Pressure BP Systolic BP Diastolic Pulse Ox 05/05/22 05:02 05/05/22 04:59 Temperature 97.9 F Temperature Source Pulse Rate Blood Pressure BP Systolic BP Diastolic Pulse Ox 96 Weight Weight: 189 lb 6.4 oz Body Mass Index (BMI) 29.6 Labs Labs Labs: Blood Type O POSITIVE Antibody Screen NEGATIVE Hct 35.9 % (37-47) L Hgb 11.8 g/dL (12.0-15.0) L Rhogam given: No See [facility] H&P Assessment & Plan (1) Active labor at term: COMMENT: @ 39&5 PLAN: Plan Admit to L&D GBS negative Routine care
--- NOTE | 2022-05-05 05:07 | EX.PCM.OBRPT ---
Maternal Data Information Final CLYDE: 05/10/22 Gestational age: 39&2 Vaginal Delivery Maternal Presentation Maternal Presentation: Active Labor Operative Information Date of Procedure: 05/05/22 Pre-Operative Diagnosis: Labor Post-Operative Diagnosis: Labor Surgery / Procedure Performed: Spontaneous Vaginal Delivery Type of Anesthesia: Local with 1% Lidocaine Estimated Blood Loss: 300ml Findings Description of Procedure: Patient prepped & draped when C/C/+1. She pushed well to deliver the head. head gently guided to allow delivery of anterior and posterior shoulders. No excess traction placed on head. Body delivered and 3VC clamped & cut in delayed fashion. Placenta delivered with gentle traction and good uterine tone obtained. Presentation: CHARLY Amniotic Membrane Rupture Type: Artificial Amniotic Fluid Description: Lightly stained meconium Placental Delivery Description: Expressed Placenta Disposition: [facility] Specimen(s) Removed: Placenta Cord Vessel Description: 3 Vessels Cord Entanglement: None A Gender: Female (Sera) (1 minute): 8 (5 minute): 9 Delayed Cord Clamping: Yes Post Vaginal Delivery Medications Given After Delivery: IV Pitocin (IM) Episiotomy Description: None Laceration: 1st degree (perineal - repaired with 3-0 vicryl) Complication Complications: None
[2022-05-05] MEDS: Ketorolac 30 MG/ML Syringe IV (05:30)
[2022-05-05] MEDS: Sertraline 50 MG Tablet PO (13:02)
[2022-05-06] VITALS (7 sets, daily range): BP systolic 101–111; BP diastolic 55–72; PULSE 73–87; RESP 14–17; TEMP 36.1–36.5; O2SAT 94–98
--- NOTE | 2022-05-06 08:43 | PCM.PN.OB ---
Subjective Subjective pain well controlled, average lochia Objective Data Objective Data Vital Signs: Vital Signs Temp Pulse Resp BP Pulse Ox O2 Del Method 97 F L 77 17 111/72 98 Room Air 05/06/22 02:57 05/06/22 02:57 05/06/22 02:57 05/06/22 02:57 05/06/22 02:57 05/06/22 02:57 Oxygen Delivery Method Room Air Weight: 85.91 kg Body Mass Index (BMI) 29.6 Intake & Output: Intake and Output for Last 24 Hours 05/04/22 05/05/22 05/06/22 23:59 23:59 23:59 Intake Total 450 / 450 Output Total 400 / 400 Balance 50 / 50 Lab / Micro Data Result Diagrams: 05/05/22 02:35 Physical Exam Const alert and no apparent distress Narrative: Fundus firm, below umbilicus. Assessment & Plan (1) Vaginal delivery: PLAN: Plan day #1 status post vaginal delivery. Patient and are doing well. Patient is breast-feeding. Discharge home today with routine instructions as long as okay with pediatrics.
--- NOTE | 2022-05-06 08:44 | DS.PCM_ITS ---
Providers Date of Admission: 05/05/22 Primary Care Physician: Dr. Darryl Chairez MD Reason For Visit: R/O LABOR Diagnosis Discharge Diagnosis (1) Vaginal delivery: Status: Acute Code(s): O80 - Encounter for full-term uncomplicated delivery Plan day #1 status post vaginal delivery. Patient and are doing well. Patient is breast-feeding. Discharge home today with routine instructions as long as okay with pediatrics. Medications at Discharge Home Medications vits,calcium no.78-iron fumarate-folic acid 29 mg-1 mg tablet (Prena tabs FA) 1 tab PO DAILY 02/01/18 sertraline 100 mg tablet 0.5 tab PO DAILY Check with primary doctor 02/02/20 ferrous sulfate 325 mg (65 mg iron) tablet (iron) 325 mg PO DAILY 05/05/22 Hospital Course Operations None Summary of Care Provided Hospital Course: 36-year-old multigravida patient admitted at term in spontaneous labor. She has spontaneous vaginal delivery on 05/05/2022. By 05/06/2022 she was ready for discharge with routine instructions. Weight / BMI Weight Weight: 85.91 kg Body Mass Index (BMI) 29.6 ABG / Lab / Microbiology Data Result Diagrams: 05/05/22 02:35 Meaningful Use Info Meaningful Use Diagnoses (Choose all that apply): None applicable Discharge Plan Admission Admit Date/Time: 05/05/22 02:22 Primary Reason for Your Visit: vaginal delivery Attending Provider: Kiel Navarro Primary Care Provider: Darryl Chairez Discharge Orders/Prescriptions Prescriptions: No Action Prenatabs FA 1 TABLET tablet 1 tab PO DAILY sertraline 100 MG tablet 0.5 tab PO DAILY ferrous sulfate [iron] 325 mg (65 mg iron) Tablet 325 mg PO DAILY Referrals / Follow Up: Darryl Chairez MD [Primary Care Provider] - Disposition Discharge Orders: Discharge Patient (Routine); Ordered 05/06/22 Ordered By: Dr. Isabel Goncalves
[2022-05-06] MEDS: Sertraline 50 MG Tablet PO (08:58)
--- NOTE | 2022-05-06 12:49 | DCINST_ITS ---
Discharge Instructions Diet Discharge Diet: No restrictions Activity Discharge Activity: May Shower May resume sexual activity in: 6 weeks Ice area for (Minutes): 15 Weight Bearing Status: Weight bearing as tolerated Lifting Restrictions: nothing heavier than baby Dressing / Incision Call your doctor if your incision/area has: Continuous Slow Oozing, Sudden Increased Bleeding, Increased Pain/ Swelling, Increased Redness, Foul Smelling Discharge and Swelling at the incision site Call your doctor if you observe: Fever of 101 or Higher, Coldness, Increased Pain, Numbness or Tingling, Change in Color, Inability to urinate, Inability to have a bowel movement, Using more than 1 pad per hour, Shortness of breath, Dizziness, Fainting spells, Swelling in the ankles, Chest pain, Increased palpitations (irregular heartbeat), Calf discomfort and Uncontrolled pain Cleanse incision/area with: Soap & Water Follow Up Care When: 1-2 weeks for early visit 6 week exam Test Results: Test results from this visit will be discussed in further detail at your follow- up appointment, if applicable. Discharge Plan Admission Admit Date/Time: 05/05/22 02:22 Primary Reason for Your Visit: vaginal delivery Attending Provider: Kiel Navarro Primary Care Provider: Darryl Chairez Discharge Orders/Prescriptions Prescriptions: No Action Prenatabs FA 1 TABLET tablet 1 tab PO DAILY sertraline 100 MG tablet 0.5 tab PO DAILY ferrous sulfate [iron] 325 mg (65 mg iron) Tablet 325 mg PO DAILY Referrals / Follow Up: Darryl Chairez MD [Primary Care Provider] - Disposition Disposition (needs filled in before D/C Order can be placed): Home, Self Care
== END 2022-05-06 16:30 | disposition home or self-care (01) | DRG 807 ==
LOC: WPOUT 02:26 → WP 02:26
PROVIDERS: Admitting Provider Obstetrics & Gynecology; PCP Family Medicine; Visit Provider Obstetrics & Gynecology
DX: O77.0 Labor and delivery complicated by meconium in amniotic fluid (principal); Z37.0 Single live birth; O99.344 Other mental disorders complicating childbirth; F32.A Depression, unspecified; F41.9 Anxiety disorder, unspecified; Z3A.39 39 weeks gestation of pregnancy; O70.0 First degree perineal laceration during delivery; Z79.899 Other long term (current) drug therapy
CPT/HCPCS: 59025; 59050; 85025; 86850; 86900; 86901; 99221; J7120; A4216; G0378; J2405